=== PATIENT | female | born 1955 | race Caucasian/White ===

== ENCOUNTER 2017-02-05 11:34 | Inpatient (IN) | payer OTHER ==
[~2017-02-05] VITALS: Ht 180.3 cm; Wt 74.2 kg
[2017-02-05 11:52] VITALS: BP 130/87; PULSE 81; RESP 18; TEMP 98.5; O2SAT 96
[2017-02-05] MEDS ORDERED: ROSU5 PO (11:58)
[2017-02-05] MEDS ORDERED: URIB118C (11:58)
[2017-02-05] MEDS ORDERED: MIRA25TA PO (11:58)
[2017-02-05] MEDS ORDERED: DEXAMETHASONE SOD PHOS 4 MG/ML VIAL IV ONE (12:00)
[2017-02-05] MEDS ORDERED: PROPOFOL 200 MG/20 ML AMP IV ONE (12:00)
[2017-02-05] MEDS ORDERED: LIDOCAINE HCL 1% PF 5 ML AMPULE OTHER ONE (12:00)
[2017-02-05] MEDS ORDERED: ONDANSETRON HCL 4 MG/2 ML VIAL IV PUSH ONE ×2 (12:00→14:35)
[2017-02-05] MEDS ORDERED: MORPHINE SULFATE 4 MG/ML INJ IV ONE (12:00)
[2017-02-05] MEDS ORDERED: SODIUM CHLOR 0.9% 1000 ML INJ 1,000 ML IV SCH (12:00)
[2017-02-05] MEDS ORDERED: ePHEDrine/NS 25 MG/5 ML SYR IV ONE (12:00)
[2017-02-05 12:01] VITALS: RESP 18; O2SAT 96
[2017-02-05 12:26] LABS: AUTOMATED NEUTROPHIL # 3.8 TH/MM3 (1.8-7.7); BASOPHIL # 0.1 TH/MM3 (0-0.2); BASOPHIL % 0.9 % (0.0-2.0); EOSINOPHIL # 0.1 TH/MM3 (0-0.4); EOSINOPHIL % 2.1 % (0.0-4.0); HEMO FLAGS DIFF FINAL; LYMPH % 26.9 % (9.0-44.0); LYMPHOCYTE # 1.8 TH/MM3 (1.0-4.8); MEAN CELL VOLUME 95.9 FL (80.0-100.0); MEAN CORPUSCULAR HEMOGLOBIN 32.7 PG (27.0-34.0); MEAN CORPUSCULAR HGB CONC 34.1 % (32.0-36.0); MONO % 12.1 % (0.0-8.0); PLATELET COUNT 281 TH/MM3 (150-450); RED BLOOD COUNT 4.17 MIL/MM3 (4.00-5.30); RED CELL DISTRIBUTION WIDTH 12.3 % (11.6-17.2); WHITE BLOOD COUNT 6.6 TH/MM3 (4.0-11.0)
--- NOTE | 2017-02-05 12:31 | PD ---
HPI Chief Complaint: Injury Time Seen by Provider: 11:58 Travel History International Travel<30 days: No Contact w/Intl Traveler<30days: No Traveled to known affect area: No History of Present Illness HPI 61-year-old female complaining of pain swelling right thumb. Patient states that she got bitten by her dog 2 days ago. Patient states that she was seen by her personal physician and was put on clarithromycin. Patient states that he has increasing pain and swelling of the right thumb since then. Patient denies any fever chills. Patient states the pain is sharp pain localized to right thumb. Patient denies any pain radiation. She states the pain is worse with movement of the right thumb. On a scale of 1-10 the pain is a 10. Patient has history of hyperlipidemia. Patient has x-ray of the right thumb done at [place] this morning. PFS Past Medical History Anxiety: Yes Diabetes: No Tetanus Vaccination: > 5 Years Influenza Vaccination: No Menopausal: Yes Past Surgical History Other Surgery: Yes (BREAST AUGMENTATION) Social History Alcohol Use: No Tobacco Use: No Substance Use: No Allergies-Medications (Allergen,Severity, Reaction): Coded Allergies: penicillin G (Unverified Allergy, Severe, 02/05/17) Reported Meds & Prescriptions Reported Meds & Active Scripts Active Reported Myrbetriq (Mirabegron) 25 Mg Tab 25 Mg PO DAILY Uribel (Rkldbkqkfyc-Dposc-Hxvdoybvf Blue) 1 Cap Crestor (Rosuvastatin Calcium) 5 Mg Tab 5 Mg PO DAILY Review of Systems General / Constitutional: No: Fever Eyes: No: Visual changes HENT: No: Headaches Cardiovascular: No: Chest Pain or Discomfort Respiratory: No: Shortness of Breath Gastrointestinal: No: Abdominal Pain Genitourinary: No: Dysuria Musculoskeletal: Positive: Pain Skin: No Rash Neurologic: No: Weakness Psychiatric: No: Depression Endocrine: No: Polydipsia Hematologic/Lymphatic: No: Easy Bruising Physical Exam Narrative GENERAL: Well-nourished, well-developed patient. SKIN: Focused skin assessment warm/dry. HEAD: Normocephalic. EYES: No scleral icterus. No injection or drainage. NECK: Supple, trachea midline. No JVD or lymphadenopathy. CARDIOVASCULAR: Regular rate and rhythm without murmurs, gallops, or rubs. RESPIRATORY: Breath sounds equal bilaterally. No accessory muscle use. GASTROINTESTINAL: Abdomen soft, non-tender, nondistended. MUSCULOSKELETAL: No cyanosis, or edema. BACK: Nontender without obvious deformity. No CVA tenderness. Patient has redness swelling tenderness diffuse over the right thumb with a healing puncture wound on the ulnar aspect of the IP joint of the right thumb. Severe tenderness on passive flexion extension of the right thumb. Severe tenderness on palpation palmar aspect of the right thumb. Sensory function intact. Data Data Last Documented VS Vital Signs Date Time Temp Pulse Resp B/P (MAP) Pulse Ox O2 Delivery O2 Flow Rate FiO2 02/05/17 12:01 18 96 Room Air 02/05/17 11:58 81 02/05/17 11:52 98.5 130/87 (101) Orders Orders Electrocardiogram (02/05/17 11:58) Complete Blood Count With Diff (02/05/17 11:58) Basic Metabolic Panel (Bmp) (02/05/17 11:58) Prothrombin Time / Inr (Pt) (02/05/17 11:58) Act Partial Throm Time (Ptt) (02/05/17 11:58) Iv Access Insert/Monitor (02/05/17 11:58) Ecg Monitoring (02/05/17 11:58) Oximetry (02/05/17 11:58) Sodium Chlor 0.9% 1000 Ml Inj (Ns 1000 M (02/05/17 12:00) Electrocardiogram (02/05/17 ) Chest, Single Ap (02/05/17 12:00) Finger (Xxi9std) (02/05/17 12:21) Vancomycin Inj (Vancomycin Inj) (02/05/17 12:45) Morphine Inj (Morphine Inj) (02/05/17 12:45) Ondansetron Inj (Zofran Inj) (02/05/17 12:45) Admit Order (Ed Use Only) (02/05/17 12:47) Consult Hand Surgery (02/05/17 ) Diet Npo (02/05/17 Lunch) Consult Infectious Disease (02/05/17 ) Ciprofloxacin 400 Mg Premix (Cipro 400 M (02/05/17 13:00) Metronidazole 500 Mg Inj (Flagyl 500 Mg (02/05/17 13:00) Ketorolac Inj (Toradol Inj) (02/05/17 13:00) Ondansetron Inj (Zofran Inj) (02/05/17 13:00) Sodium Chlor 0.9% 1000 Ml Inj (Ns 1000 M (02/05/17 13:00) Admit To Inpatient (02/05/17 ) Labs Laboratory Tests Test 02/05/17 12:10 White Blood Count 6.6 TH/MM3 Red Blood Count 4.17 MIL/MM3 Hemoglobin 13.6 GM/DL Hematocrit 40.0 % Mean Corpuscular Volume 95.9 FL Mean Corpuscular Hemoglobin 32.7 PG Mean Corpuscular Hemoglobin Concent 34.1 % Red Cell Distribution Width 12.3 % Platelet Count 281 TH/MM3 Mean Platelet Volume 6.7 FL Neutrophils (%) (Auto) 58.0 % Lymphocytes (%) (Auto) 26.9 % Monocytes (%) (Auto) 12.1 % Eosinophils (%) (Auto) 2.1 % Basophils (%) (Auto) 0.9 % Neutrophils # (Auto) 3.8 TH/MM3 Lymphocytes # (Auto) 1.8 TH/MM3 Monocytes # (Auto) 0.8 TH/MM3 Eosinophils # (Auto) 0.1 TH/MM3 Basophils # (Auto) 0.1 TH/MM3 CBC Comment DIFF FINAL Differential Comment Prothrombin Time 10.6 SEC Prothromb Time International Ratio 1.0 RATIO Activated Partial Thromboplast Time 24.1 SEC Blood Urea Nitrogen 16 MG/DL Creatinine 0.75 MG/DL Random Glucose 104 MG/DL Calcium Level 8.5 MG/DL Sodium Level 139 MEQ/L Potassium Level 4.0 MEQ/L Chloride Level 109 MEQ/L Carbon Dioxide Level 23.3 MEQ/L Anion Gap 7 MEQ/L Estimat Glomerular Filtration Rate 78 ML/MIN [facility] Medical Decision Making Medical Screen Exam Complete: Yes Emergency Medical Condition: Yes Differential Diagnosis Differential diagnosis including cellulitis, Tenosynovitis Narrative Course 61-year-old female with redness swelling tenderness right thumb. Status post dog bite the right thumb. Normal saline solution 1 25 cc an hour. Diagnosis Primary Impression: Tenosynovitis of finger Admitting Information Admitting Physician Requests: Admit Noé Contreras MD Feb 05, 2017 12:31
[2017-02-05 12:36] LABS: APTT (PATIENT) 24.1 SEC (24.3-30.1); PROTHROMBIN TIME - PATIENT 10.6 SEC (9.8-11.6)
[2017-02-05 12:42] LABS: BICARBONATE 23.3 MEQ/L (21.0-32.0)
--- NOTE | 2017-02-05 12:42 | RADRPT ---
EXAM DATE/TIME: 02/05/2017 12:11 [place] COMPARISON: No previous studies available for comparison. INDICATIONS : Evaluate for communicable disease. Dog bite to right thumb. MEDICAL HISTORY : None. SURGICAL HISTORY : None. ENCOUNTER: Initial ACUITY: 4 - 6 days PAIN SCORE: 0/10 LOCATION: Bilateral chest FINDINGS: A single view of the chest demonstrates the lungs to be symmetrically aerated without evidence of mas s, infiltrate or effusion. The cardiomediastinal contours are unremarkable. Osseous structures are intact. CONCLUSION: No acute disease. Clyde Orozco MD on February 05, 2017 at 12:40 Board Certified Radiologist. This report was verified electronically.
[2017-02-05] MEDS: SODIUM CHLOR 0.9% 1000 ML INJ 1,000 ML IV SCH ×2 (13:00→22:24)
[2017-02-05] MEDS ORDERED: ONDANSETRON HCL 4 MG/2 ML VIAL IV PUSH PRN (13:00)
--- NOTE | 2017-02-05 13:12 | HHI.HP ---
[facility] Nancy Fam DO Admission Diagnosis Tenosynovitis right thumb Diagnoses: (1) Tenosynovitis of finger Diagnosis: Principal (2) Dog bite Diagnosis: Principal Chief Complaint: pain/swelling of the right thumb Travel History International Travel<30 Days: No Contact w/Intl Traveler <30 Da: No Traveled to Known Affected Are: No History of Present Illness patient is a 61 y/o female who presented to ER with pain and swelling of the right thumb. she says that was bitten by her dog two days ago when she was feeding her dog. she noticed some swelling and redness over the right thumb which gradually got worse. she was prescribed Clarithromycin by her PCP which she took with no significant improvement. she denies any fever,chills or night sweats. she had some nausea but with no emesis. Review of Systems Constitutional: DENIES: Fever, Weight loss, Chills, Night Sweats Eyes: DENIES: Blurred vision, Diplopia, Vision loss, Double Vision Ears, nose, mouth, throat: DENIES: Tinnitus, Vertigo, Throat pain, Epistaxis Respiratory: DENIES: Apneas, Cough, Snoring, Wheezing, Hemoptysis, Sputum production, Shortness of breath Cardiovascular: DENIES: Chest pain, Palpitations, Syncope, Dyspnea on Exertion , PND, Lower Extremity Edema, Orthopnea, Claudication Gastrointestinal: COMPLAINS OF: Nausea, DENIES: Abdominal pain, Black stools, Bloody stools, Constipation, Diarrhea, Vomiting, Difficulty Swallowing, Anorexia Genitourinary: DENIES: Urinary frequency, Urgency, Hematuria, Dysuria Musculoskeletal: COMPLAINS OF: Joint pain (right thumb), DENIES: Muscle aches, Stiffness, Joint Swelling Integumentary: DENIES: Rash Neurologic: DENIES: Abnormal gait, Headache, Localized weakness, Paresthesias, Seizures, Speech Problems, Tremor, Poor Balance Psychiatric: DENIES: Anxiety, Confusion, Mood changes, Depression, Hallucinations, Agitation, Suicidal Ideation, Homicidal Ideation, Delusions Past Family Social History Past Medical History dyslipidemia history of cystitis Past Surgical History breast augmentation ana Reported Medications Myrbetriq (Mirabegron) 25 Mg Tab 25 Mg PO DAILY Uribel (Rplcwqutlsl-Rjwsa-Eurpwhrxt Blue) 1 Cap Crestor (Rosuvastatin Calcium) 5 Mg Tab 5 Mg PO DAILY Allergies: Coded Allergies: penicillin G (Unverified Allergy, Severe, 02/05/17) Active Ordered Medications Current Medications Sodium Chloride 1,000 ml @ 125 mls/hr Q8H IV Last administered on 02/05/17t 12 :19; Start 02/05/17 at 12:00 Vancomycin HCl 1000 mg/Sodium Chloride 250 ml @ 250 mls/hr ONCE ONCE IV ; Start 02/05/17 at 12:45; Stop 02/05/17 at 13:44; Status UNV Morphine Sulfate (Morphine Inj) 2 mg ONCE ONCE IV PUSH ; Start 02/05/17 at 12: 45; Stop 02/05/17 at 12:46; Status UNV Ondansetron HCl (Zofran Inj) 4 mg ONCE ONCE IV PUSH ; Start 02/05/17 at 12:45; Stop 02/05/17 at 12:46; Status UNV Family History not relevant to this admission. Social History no smoking or drinking. Physical Exam Vital Signs Vital Signs Date Time Temp Pulse Resp B/P (MAP) Pulse Ox O2 Delivery O2 Flow Rate FiO2 02/05/17 12:01 18 96 Room Air 02/05/17 11:58 81 18 96 Room Air 02/05/17 11:52 98.5 81 18 130/87 (101) 96 Physical Exam GENERAL: This is a well-nourished, well-developed patient, in no apparent distress. SKIN: No rashes, ecchymoses or lesions. Cool and dry. HEAD: Atraumatic. Normocephalic. No temporal or scalp tenderness. EYES: Pupils equal round and reactive. Extraocular motions intact. No scleral icterus. No injection or drainage. ENT: Nose without bleeding, purulent drainage or septal hematoma. Throat without erythema, tonsillar hypertrophy or exudate. Uvula midline. Airway patent. NECK: Trachea midline. No JVD or lymphadenopathy. Supple, nontender, no meningeal signs. CARDIOVASCULAR: Regular rate and rhythm without murmurs, gallops, or rubs. RESPIRATORY: Clear to auscultation. Breath sounds equal bilaterally. No wheezes , rales, or rhonchi. GASTROINTESTINAL: Abdomen soft, non-tender, nondistended. No hepato-splenomegaly , or palpable masses. No guarding. MUSCULOSKELETAL:right thumb is swollen with some erythema and decrease in ROM NEUROLOGICAL: Awake and alert. Cranial nerves II through XII intact. Motor and sensory grossly within normal limits. Five out of 5 muscle strength in all muscle groups. Normal speech. Laboratory Laboratory Tests Test 02/05/17 12:10 White Blood Count 6.6 Red Blood Count 4.17 Hemoglobin 13.6 Hematocrit 40.0 Mean Corpuscular Volume 95.9 Mean Corpuscular Hemoglobin 32.7 Mean Corpuscular Hemoglobin Concent 34.1 Red Cell Distribution Width 12.3 Platelet Count 281 Mean Platelet Volume 6.7 Neutrophils (%) (Auto) 58.0 Lymphocytes (%) (Auto) 26.9 Monocytes (%) (Auto) 12.1 Eosinophils (%) (Auto) 2.1 Basophils (%) (Auto) 0.9 Neutrophils # (Auto) 3.8 Lymphocytes # (Auto) 1.8 Monocytes # (Auto) 0.8 Eosinophils # (Auto) 0.1 Basophils # (Auto) 0.1 CBC Comment DIFF FINAL Differential Comment Prothrombin Time 10.6 Prothromb Time International Ratio 1.0 Activated Partial Thromboplast Time 24.1 Blood Urea Nitrogen 16 Creatinine 0.75 Random Glucose 104 Calcium Level 8.5 Sodium Level 139 Potassium Level 4.0 Chloride Level 109 Carbon Dioxide Level 23.3 Anion Gap 7 Estimat Glomerular Filtration Rate 78 Result Diagram: 02/05/17 1210 02/05/17 1210 Caprini VTE Risk Assessment Caprini VTE Risk Assessment: Mod/High Risk (score >= 2) Caprini Risk Assessment Model Point Value = 1 Point Value = 2 Point Value = 3 Point Value = 5 Age 41-60 Minor surgery BMI > 25 kg/m2 Swollen legs Varicose veins or History of unexplained or recurrent spontaneous Oral contraceptives or hormone replacement Sepsis (< 1 month) Serious lung disease, including pneumonia (< 1 month) Abnormal pulmonary function Acute myocardial infarction Congestive heart failure (< 1 month) History of inflammatory bowel disease Medical patient at bed rest Age 61-74 Arthroscopic surgery Major open surgery (> 45 min) Laparoscopic surgery (> 45 min) Malignancy Confined to bed (> 72 hours) Immobilizing plaster cast Central venous access Age >= 75 History of VTE Family history of VTE Factor V Leiden Prothrombin [id number] Lupus anticoagulant Anticardiolipin antibodies Elevated serum homocysteine Heparin-induced thrombocytopenia Other congenital or acquired thrombophilia Stroke (< 1 month) Elective arthroplasty Hip, pelvis, or leg fracture Acute spinal cord injury (< 1 month) Prophylaxis Regimen Total Risk Factor Score Risk Level Prophylaxis Regimen 0-1 Low Early ambulation 2 Moderate Order ONE of the following: *Sequential Compression Device (SCD) *Heparin 5000 units SQ BID 3-4 Higher Order ONE of the following medications: *Heparin 5000 units SQ TID *Enoxaparin/Lovenox 40 mg SQ daily (WT < 150 kg, CrCl > 30 mL/min) *Enoxaparin/Lovenox 30 mg SQ daily (WT < 150 kg, CrCl > 10-29 mL/min) *Enoxaparin/Lovenox 30 mg SQ BID (WT < 150 kg, CrCl > 30 mL/min) AND/OR *Sequential Compression Device (SCD) 5 or more Highest Order ONE of the following medications: *Heparin 5000 units SQ TID (Preferred with Epidurals) *Enoxaparin/Lovenox 40 mg SQ daily (WT < 150 kg, CrCl > 30 mL/min) *Enoxaparin/Lovenox 30 mg SQ daily (WT < 150 kg, CrCl > 10-29 mL/min) *Enoxaparin/Lovenox 30 mg SQ BID (WT < 150 kg, CrCl > 30 mL/min) AND *Sequential Compression Device (SCD) Assessment and Plan Assessment and Plan A/P - right thumb infection/ dog bite keep NPO for now- pending the hand surgery evaluation- start on IV antibiotics - will consult ID continue pain control. -dyslipidemia; resume home meds upon discharge. -DVT prophylaxis- SCD's pending the hand surgery evaluation. Discussed Condition With ER physician and the patient. Physician Certification 2 Midnight Certification Type: Admission for Inpatient Services Order for Inpatient Services The services are ordered in accordance with Medicare regulations or non- Medicare payer requirements, as applicable. In the case of services not specified as inpatient-only, they are appropriately provided as inpatient services in accordance with the 2-midnight benchmark. Estimated LOS (days): 2 days is the estimated time the patient will need to remain in the hospital, assuming treatment plan goals are met and no additional complications. Post-Hospital Plan: Home Physician Certification 2 Midnight Certification Type: Admission for Inpatient Services Order for Inpatient Services The services are ordered in accordance with Medicare regulations or non- Medicare payer requirements, as applicable. In the case of services not specified as inpatient-only, they are appropriately provided as inpatient services in accordance with the 2-midnight benchmark. Estimated LOS (days): 2 days is the estimated time the patient will need to remain in the hospital, assuming treatment plan goals are met and no additional complications. Post-Hospital Plan: Home Manjit Aranda MD Feb 05, 2017 13:12
[2017-02-05 13:29] VITALS: BP 135/88; PULSE 80; RESP 18; O2SAT 97
[2017-02-05 13:50] VITALS: BP 133/88; PULSE 74; RESP 18; TEMP 96.9; O2SAT 96
[2017-02-05] MEDS ORDERED: KETOROLAC TROMETHAMINE 30 MG/ML (IVP) VIAL IV PUSH PRN (14:00)
[2017-02-05] MEDS ORDERED: VANCOMYCIN INJ 1,000 MG in SODIUM CHLOR 0.9% 250 ML INJ 250 ML IV ONE (14:30)
[2017-02-05] MEDS ORDERED: MORPHINE SULFATE 4 MG/ML INJ IV PUSH ONE (14:35)
[2017-02-05] MEDS: CIPROFLOXACIN 400 MG PREMIX 200 ML IV SCH (15:28)
[2017-02-05] MEDS: metroNIDAZOLE 500 MG INJ 100 ML IV SCH ×2 (15:28→20:50)
[2017-02-05 19:50] VITALS: BP 136/97; PULSE 72; RESP 16; TEMP 97.4; O2SAT 98
[2017-02-05] MEDS ORDERED: LIDOCAINE HCL 2% 50 ML VIAL ONE (20:09)
[2017-02-05] MEDS ORDERED: BUPIVACAINE HCL PF 0.25% 30 ML VIAL ONE (20:11)
[2017-02-05] MEDS ORDERED: METOPROLOL TARTRATE 25 MG TAB PO PRN (20:15)
[2017-02-05] MEDS ORDERED: SODIUM CHLORID 0.9% 500 ML IV PRN (20:15)
[2017-02-05] MEDS ORDERED: POVIDONE IODINE 5% (ANTISEPSIS KIT) 4 APPLICATIONS EACH NARE PRN (20:15)
[2017-02-05] MEDS ORDERED: LACTATED RINGER'S 1000 ML IV PRN (20:15)
[2017-02-05] MEDS ORDERED: INSULIN HUMAN REGULAR 1,000 UNITS/10 ML VIAL SQ PRN (20:15)
[2017-02-05] MEDS ORDERED: CHLORHEXIDINE GLUCONATE 2 % 1 PACK (2 CLOTHS) TOPICAL PRN (20:15)
[2017-02-05] MEDS ORDERED: NEOMYCIN/POLYMYXIN 1 ML G.U. IRRIGANT IRRIGATION ONE (20:52)
--- NOTE | 2017-02-05 21:47 | PD.OP ---
Operative Report Preoperative Diagnosis: (1) Dog bite of right thumb with infection Postoperative Diagnosis: (1) infectious flexor tenosynovitis right thumb (2) Dog bite of right thumb with infection Procedure: exploration, arthrotomy Interphalangeal joint right thumb drainage and wash flexor tendon sheath right thumb Anesthesia: general Surgeon: Mando Mathew Telephone Station Repairer(s): deepak Operation and Findings: bite wounds over the lateral aspect of the IP joint of the thumb purulence within the flexor tendon sheath right thumb IP joint no purulence Mando Mathew MD Feb 05, 2017 21:47
[2017-02-05] MEDS ORDERED: *morphine SULFATE 8 MG/ML PERIprocedure ONLY ONE (22:20)
[2017-02-05] MEDS ORDERED: DO NOT ADM ANY ANTICOAGULANT DRUGS PRN (22:45)
[2017-02-05 23:00] VITALS: BP 142/95; PULSE 79; RESP 17; TEMP 96.8; O2SAT 99
--- NOTE | 2017-02-05 23:26 | MB ---
cc: GERALDO MCDONNELL DATE OF CONSULTATION 02/05/17 REASON FOR CONSULTATION Dog bite with infection right thumb. HISTORY OF PRESENT ILLNESS The patient is a 61-year-old right-hand dominant female who presented to the ED with complaints of dog bite to right thumb two days ago. The patient was feeding her dog and was bitten by her own dog. The patient was initially seen by primary care. She was put on oral antibiotics and she had worsening of symptoms and presented to the ED. Hand surgery was consulted for possible flexor tendon sheath involvement. The patient complains of pain and swelling involving the right thumb. She also complains of associated redness. Denies any drainage. She also complains of mild decreased sensation of the pulp region. She also complains of painful range of motion of the thumb. Denies any fever. PAST MEDICAL/SURGICAL HISTORY As noted. PHYSICAL EXAMINATION On examination, the patient is alert, oriented x3. Examination of right thumb reveals two bite raman on the lateral aspect of the IP joint of the thumb. There is evidence of swelling and erythema along the volar aspect of the IP joint of the thumb and along the flexor tendon sheath up to the proximal phalanx region. There is also evidence of swelling on the dorsal aspect of the IP joint of the thumb with some fluctuation. Tenderness noted over the volar aspect of the IP joint of the thumb and along the flexor tendon sheath. Tenderness also noted over the dorsal aspect of the IP joint of the thumb. Range of motion of the thumb was limited and painful and associated with pain. She had decreased sensation over the pulp region. She had intact capillary refill. No evidence of compartment syndrome of the pulp noted clinically. No involvement of the volar aspect of the wrist or the forearm noted. IMAGING STUDIES X-rays done at an outside facility were reviewed, shows no evidence of fracture or foreign body. LABORATORY DATA Lab work was reviewed. She has a white count of 6.6 with neutrophil shift of 58%. ASSESSMENT A 61-year-old female with dog bite to the right thumb with flexor tendon sheath involvement and questionable involvement of IP joint of the thumb. PLAN We will keep the patient n.p.o., take her emergently for exploration, wash flexor tendon sheath and possible arthrotomy IP joint of the right thumb. We will continue with IV antibiotics. MD ALEX Lee /9:54 PM /11:16 PM [id number]
[2017-02-06] VITALS (7 sets, daily range): BP systolic 105–137; BP diastolic 67–78; PULSE 67–75; RESP 16–17; TEMP 96.1–98.6; O2SAT 94–97
[2017-02-06] MEDS: CIPROFLOXACIN 400 MG PREMIX 200 ML IV SCH ×2 (00:37→13:46)
[2017-02-06] MEDS ORDERED: ACETAMINOPHEN/HYDROcodone 325 MG/5 MG TAB PO ONE (02:30)
[2017-02-06] MEDS: metroNIDAZOLE 500 MG INJ 100 ML IV SCH ×3 (05:55→21:17)
--- NOTE | 2017-02-06 09:20 | HHI.PR ---
Subjective Remarks in no acute distress. pain to the right hand is moderate in intensity. no fever. d/w the RN and no acute issues over night. Objective Vitals Vital Signs Date Time Temp Pulse Resp B/P (MAP) Pulse Ox O2 Delivery O2 Flow Rate FiO2 02/06/17 07:57 97.2 69 16 105/73 (84) 94 02/06/17 04:00 97.9 75 16 109/67 (81) 97 02/05/17 23:00 96.8 79 17 142/95 (111) 99 02/05/17 22:30 69 16 129/77 (94) 99 Room Air 02/05/17 22:15 74 17 135/81 (99) 99 Room Air 02/05/17 22:09 75 12 130/79 (96) 99 Room Air 02/05/17 21:53 97.2 77 12 105/62 (76) 90 Nasal Cannula 4 02/05/17 19:50 97.4 72 16 136/97 (110) 98 02/05/17 13:50 96.9 74 18 133/88 (103) 96 02/05/17 13:29 80 18 135/88 (104) 97 Room Air 02/05/17 12:01 18 96 Room Air 02/05/17 11:58 81 18 96 Room Air 02/05/17 11:52 98.5 81 18 130/87 (101) 96 I/O 02/05/17 02/05/17 02/05/17 02/06/17 02/06/17 02/06/17 07:00 15:00 23:00 07:00 15:00 23:00 Intake Total 0 ml 1850 ml 560 ml Output Total 5 ml Balance 0 ml 1845 ml 560 ml Intake Oral 360 ml IV Total 0 ml 650 ml 200 ml Other 1200 ml Output Estimated Blood Loss 5 ml # Voids 5 Result Diagram: 02/05/17 1210 02/05/17 1210 Imaging Last Impressions Chest X-Ray 02/05/17 1200 Signed Impressions: Service Date/Time: January 12:11 - CONCLUSION: No acute disease. Clyde Orozco MD Objective Remarks GENERAL: This is a well-nourished, well-developed patient, in no apparent distress. CARDIOVASCULAR: Regular rate and regular rhythm without murmurs, gallops, or rubs. RESPIRATORY: Clear to auscultation. Breath sounds equal bilaterally. No wheezes , rales, or rhonchi. GASTROINTESTINAL: Abdomen soft, non-tender, nondistended. Normal, active bowel sounds MUSCULOSKELETAL: right hand covered with clean dressing. NEURO: Alert & Oriented x4 to person, place, time, situation. Moves all ext x4 Procedures exploration, arthrotomy Interphalangeal joint right thumb drainage and wash flexor tendon sheath right thumb Medications and IVs Current Medications Sodium Chloride 1,000 ml @ 125 mls/hr Q8H IV Last administered on 02/05/17 12 :19; Start 02/05/17 at 12:00; Stop 02/05/17 at 14:27; Status DC Vancomycin HCl 1000 mg/Sodium Chloride 250 ml @ 250 mls/hr ONCE ONCE IV Last administered on 02/05/17 15:28; Start 02/05/17 at 14:30; Stop 02/05/17 at 15:29 ; Status DC Morphine Sulfate (Morphine Inj) 2 mg ONCE ONCE IV PUSH Last administered on 15:29; Start 02/05/17 at 14:35; Stop 02/05/17 at 14:36; Status DC Ondansetron HCl (Zofran Inj) 4 mg ONCE ONCE IV PUSH ; Start 02/05/17 at 14:35; Stop 02/05/17 at 14:36; Status DC Ciprofloxacin/ Dextrose 200 ml @ 200 mls/hr Q12H IV Last administered on 00:37; Start 02/05/17 at 14:00 Metronidazole 100 ml @ 100 mls/hr Q8H IV Last administered on 02/06/17 05:55 ; Start 02/05/17 at 15:00 Ketorolac Tromethamine (Toradol Inj) 15 mg Q6HR PRN IV PUSH PAIN /FEVER Last administered on 02/06/17 00:37; Start 02/05/17 at 14:00; Stop 02/10/17 at 13:59 Ondansetron HCl (Zofran Inj) 4 mg Q8HR PRN IV PUSH NAUSEA; Start 02/05/17 at 13 :00 Sodium Chloride 1,000 ml @ 100 mls/hr Q10H IV Last administered on 02/05/17 22:24; Start 02/05/17 at 13:00 Lidocaine HCl (Xylocaine 2% Inj) 50 ml STK-MED ONCE .ROUTE Last administered on 02/05/17 20:52; Start 02/05/17 at 20:09; Stop 02/05/17 at 20:10; Status DC Bupivacaine HCl (Marcaine Pf 0.25% Inj) 30 ml STK-MED ONCE .ROUTE Last administered on 02/05/17 20:52; Start 02/05/17 at 20:11; Stop 02/05/17 at 20:12 ; Status DC Lactated Ringer's 1,000 ml @ 30 mls/hr Q24H PRN IV SEE LABEL COMMENTS; Start at 20:15; Stop 02/08/17 at 20:14 Sodium Chloride 500 ml @ 30 mls/hr [id number] PRN IV SEE LABEL COMMENTS; Start at 20:15; Stop 02/08/17 at 20:14 Metoprolol Tartrate (Lopressor) 25 mg [employer]LE[employer]GER PRN PO SEE LABEL COMMENTS; Start 02/05/17 at 20:15; Stop 02/08/17 at 20:14 Povidone Iodine (Betadine 5% Antisepsis Kit) 1 applic [employer] SERV[employer]GER PRN EACH NARE SEE LABEL COMMENTS; Start 02/05/17 at 20:15; Stop 02/08/17 at 20:14 Chlorhexidine Gluconate (Chlorhexidine 2% Cloth) 3 pack [employer] SERV[employer]GER PRN TOPICAL SEE LABEL COMMENTS; Start 02/05/17 at 20:15; Stop 02/08/17 at 20:14 Insulin Human Regular (NovoLIN R INJ) See Protocol Table ... [employer] SERVICE MA[employer]GER PRN SQ SEE PROTOCOL TABLE; Start 02/05/17 at 20:15; Stop 02/08/17 at 20:14 Neomycin/Polymyxin (Neosporin G.u. Irr) 2 ml ONCE ONCE IRRIGATION Last administered on 02/05/17 21:37; Start 02/05/17 at 20:52; Stop 02/05/17 at 21:37 ; Status DC Morphine Sulfate (*morphine INJ PERIprocedure ONLY) 8 mg STK-MED ONCE .ROUTE Last administered on 02/05/17 22:20; Start 02/05/17 at 22:20; Stop 02/05/17 at 22:21; Status DC Miscellaneous Information ALL NURSING DEPARTME... UNSCH PRN .XX SEE LABEL COMMENTS; Start 02/05/17 at 22:45; Stop 02/06/17 at 22:44 Acetaminophen/ Hydrocodone Bitart ([place] 5-325 Mg) 1 tab ONCE ONCE PO Last administered on 02/06/17t 05:21; Start 02/06/17 at 02:30; Stop 02/06/17 at 02:31 ; Status DC A/P Assessment and Plan A/P - right thumb infection/ dog bite s/p exploration, arthrotomy Interphalangeal joint right thumb/ drainage and wash flexor tendon sheath right thumb continue with IV antibiotics- follow the cultures- hand surgery following- ID consult pending- continue pain control. -dyslipidemia; resume home meds Manjit Aranda MD Feb 06, 2017 09:20
[2017-02-06] MEDS ORDERED: ACETAMINOPHEN/HYDROcodone 325 MG/5 MG TAB PO PRN (09:30)
--- NOTE | 2017-02-06 10:11 | EKG ---
Date Performed: 02/05/2017 Time Performed: 13:02:17 PTAGE: 61 years EKG: Sinus rhythm LOW QRS VOLTAGE IN PRECORDIAL LEADS PATTERN CONSISTENT WITH PULMONARY DISEASE LEFT ANTERIOR FASCICUL AR BLOCK ABNORMAL ECG PREVIOUS TRACING : 07/12/2003 15.47 Compared to prior tracing no significant change DOCTOR: Thomas Parra Interpretating Date/Time 02/06/2017 10:10:17
--- NOTE | 2017-02-06 10:13 | MP ---
cc: MANDO MCDONNELL MD DATE OF SURGERY 02/05/2017 PREOPERATIVE DIAGNOSIS Dog bite right thumb with infection. POSTOPERATIVE DIAGNOSIS Infectious flexor tenosynovitis right thumb, dog bite right thumb with infection. PROCEDURE Exploration, arthrotomy interphalangeal joint right thumb, drainage and wash flexor tendon sheath right thumb. SURGEON Dr. Mcdonnell ANESTHESIA General ESTIMATED BLOOD LOSS Minimal TOURNIQUET TIME 34 minutes at 250 mmHg. SPECIMENS Three swabs were sent, one from the IP joint of the thumb. The second one from the flexor tendon sheath and the A2 pedro region and flexor tendon sheath from the A1 pedro region. CONDITION The patient was sent to the Recovery Room in stable condition. INDICATIONS The patient is a 61-year-old female who presented to the ED with complaints of dog bite to the right thumb two days ago. She was bitten by her own dog. She was feeding her dog. The patient noted some swelling and redness. She was put on clarithromycin initially when she presented to the ED, but had worsening pain involving the right thumb associated with swelling. On examination, she had two bite raman over the lateral aspect of the IP joint of the thumb. There was evidence of swelling and redness along the IP joint region on the volar aspect and along the flexor tendon sheath. Swelling of the IP joint on the dorsal aspect of the thumb was also noted. She had exquisite tenderness along the flexor tendon sheath and the volar aspect of the IP joint of the thumb. Range of motion of the thumb was associated with pain. X-rays done at an outside facility were negative. She was consented for exploration, wash flexor tendon sheath, possible arthrotomy interphalangeal joint right thumb. The patient was explained risk and benefits of the procedure. PROCEDURE The patient was brought to the operating room. Under general anesthesia, the right upper extremity was thoroughly prepped and draped. Incision site was marked in a curvilinear fashion incorporating the bite keegan on the dorsal aspect of the IP joint of the thumb measuring about 2 cm. Another zigzag incision site was marked along the IP joint of the thumb incorporating the pulp and the volar aspect of the proximal phalanx region. Another transverse incision site was marked at the proximal aspect of the A1 pedro region of the thumb. After limb elevation, the tourniquet was inflated to 250 mmHg. Attention was initially directed to the thumb IP joint. An incision was made on the radial aspect of the IP joint of the thumb. Soft tissue dissection was carried out. Soft tissue was cleared between the extensor tendon and the collateral ligament. The joint was exposed. There was no evidence of purulent material noted within the joint. The joint fluid was normal in appearance. Cultures were obtained. Thorough wash was given. Attention was then directed to the volar aspect of the IP joint of the thumb where a zigzag incision was made over the region. Skin flap was elevated. The neurovascular bundle was protected out of harm's way. The flexor tendon sheath was exposed and the A2 pedro was released in a proximal to distal direction. There as evidence of purulent material within the region involving the flexor tendon sheath. Swab was obtained for culture and sensitivity. The pulp appeared to be not involved. An incision was made in a transverse fashion of the proximal aspect of the A1 pedro. There was evidence of purulent material within the region. The A1 pedro was released in a proximal to distal direction. The flexor tendon sheath was exposed. There was evidence of purulent material within the region. Swabs were obtained from this region and sent for culture and sensitivity. A thorough wash was given using a vessel dilator using normal saline mixed with irrigant in a proximal to distal fashion until the effluent at the distal aspect of the wound was clear. About a half a liter of solution was used. A wash was given in the pulp and the IP joint region of the thumb. Packing of the wounds were carried out with one-fourth inch Iodoform packing material. The tourniquet was deflated. Total tourniquet time was 34 minutes. She had good distal circulation on release of tourniquet. Bleeding points were cauterized with bipolar cautery. The skin flaps were then loosely approximated using 5-0 nylon in a horizontal mattress fashion. The dorsal aspect of the IP joint was packed with Iodoform on loosely approximated using 5-0 nylon in a horizontal mattress fashion. 5 cc of local anesthesia was given across the incision site. A bulky hand dressing was applied which was held in place by Sof-Rol and bias hand wrap. The patient had good distal circulation at the end of the procedure. She was recovered and sent to the Recovery Room in stable condition. Mando Mcdonnell MD SE/ANNE /9:48 PM /9:50 AM [id number]
[2017-02-06] MEDS: ACETAMINOPHEN/HYDROcodone 325 MG/5 MG TAB PO PRN ×2 (10:24→15:13)
[2017-02-06] MEDS: SODIUM CHLOR 0.9% 1000 ML INJ 1,000 ML IV SCH ×2 (10:27→19:00)
--- NOTE | 2017-02-06 16:19 | HHI.PR ---
Subjective Remarks complains of mild pain denies any tingling or numbness complaint with elevation no fever Objective Vital Signs Date Time Temp Pulse Resp B/P (MAP) Pulse Ox O2 Delivery O2 Flow Rate FiO2 02/06/17 11:42 96.1 67 16 114/73 (87) 94 02/06/17 10:55 94 02/06/17 07:57 97.2 69 16 105/73 (84) 94 02/06/17 04:00 97.9 75 16 109/67 (81) 97 02/05/17 23:00 96.8 79 17 142/95 (111) 99 02/05/17 22:30 69 16 129/77 (94) 99 Room Air 02/05/17 22:15 74 17 135/81 (99) 99 Room Air 02/05/17 22:09 75 12 130/79 (96) 99 Room Air 02/05/17 21:53 97.2 77 12 105/62 (76) 90 Nasal Cannula 4 02/05/17 19:50 97.4 72 16 136/97 (110) 98 I/O 02/05/17 02/05/17 02/05/17 02/06/17 02/06/17 02/06/17 07:00 15:00 23:00 07:00 15:00 23:00 Intake Total 0 ml 1850 ml 560 ml Output Total 5 ml Balance 0 ml 1845 ml 560 ml Intake Oral 360 ml IV Total 0 ml 650 ml 200 ml Other 1200 ml Output Estimated Blood Loss 5 ml # Voids 5 right thumb/hand: intact dressing, packing in place decreased swelling intact sensation over the pulp limited range of motion of the thumb gram stain: rare wbc's flexor tendon sheath, none in IP joint Result Diagram: 02/05/17 1210 02/05/17 1210 Assessment and Plan Assessment and Plan 61 year of female s/p drainage flexor tendon sheath and arthrotomy right thumb POD 1 Plan: packing from IP joint removed flexor tendon sheath packing pulled out a cm new dressing applied keep the part elevated range of motion exercises antibiotics based on ID recommendation hand surgery will follow Mando Mathew MD Feb 06, 2017 16:19
--- NOTE | 2017-02-06 16:37 | PD.ID.CON ---
History of Present Illness Service ID Consult Requested By Reason for Consult Evaluation and mment of Infectious Tenosynovitis after dog bite. Primary Care Physician Nancy Fam DO Diagnoses: History of Present Illness is a 61 y/o CF with PMHx significant for Interstitial cystitis for which she has been on multiple antibiotics in past for recurrent UTIs. She also has a bladder stimulator in place but it is not being used actively and is turned off. With this background patient reports she was trying to feed her sick dog some medications when her pet dog accidentally bit her thumb. Her dog is 15.5 yrs old and does not get dental cleaning per her self report. She noticed some swelling and redness and her PCP prescribed her Clarithro// Azithromycin she is not sure. She noticed gradual worsening and presented to the ED. She denies any fever,chills or night sweats. She had some nausea but with no emesis and attributes it to the Tuna sandwich she ate. ID consulted for evaluation and Mment of Infected tenosynovitis. Review of Systems Constitutional: DENIES: Diaphoretic episodes, Fatigue, Fever, Weight gain, Weight loss, Chills, Dizziness, Change in appetite, Night Sweats Endocrine: DENIES: Abnorml menstrual pattern, Heat/cold intolerance, Polydipsia , Polyuria, Polyphagia Eyes: DENIES: Blurred vision, Diplopia, Eye inflammation, Eye pain, Vision loss , Photosensitivity, Double Vision Ears, nose, mouth, throat: DENIES: Tinnitus, Hearing loss, Vertigo, Nasal discharge, Oral lesions, Throat pain, Hoarseness, Ear Pain, Running Nose, Epistaxis, Sinus Pain, Toothache, Odynophagia Respiratory: DENIES: Apneas, Cough, Snoring, Wheezing, Hemoptysis, Sputum production, Shortness of breath Cardiovascular: DENIES: Chest pain, Palpitations, Syncope, Dyspnea on Exertion , PND, Lower Extremity Edema, Orthopnea, Claudication Gastrointestinal: DENIES: Abdominal pain, Black stools, Bloody stools, Constipation, Diarrhea, Nausea, Vomiting, Difficulty Swallowing, Anorexia Genitourinary: DENIES: Abnormal vaginal bleeding, Dysmenorrhea, Dyspareunia, Sexual dysfunction, Urinary frequency, Urinary incontinence, Urgency, Hematuria , Dysuria, Nocturia, Vaginal discharge Musculoskeletal: COMPLAINS OF: Joint pain, Stiffness, Joint Swelling, DENIES: Muscle aches, Back pain, Neck pain Integumentary: DENIES: Abnormal pigmentation, Pruritus, Rash, Nail changes, Breast masses, Breast skin changes, Nipple discharge Hematologic/lymphatic: DENIES: Bruising, Lymphadenopathy Immunologic/allergic: DENIES: Eczema, Urticaria Neurologic: DENIES: Abnormal gait, Headache, Localized weakness, Paresthesias, Seizures, Speech Problems, Tremor, Poor Balance Psychiatric: DENIES: Anxiety, Confusion, Mood changes, Depression, Hallucinations, Agitation, Suicidal Ideation, Homicidal Ideation, Delusions Except as stated in HPI: all other systems reviewed are Neg Past Family Social History Allergies: Coded Allergies: penicillin G (Unverified Allergy, Severe, 02/05/17) Past Medical History dyslipidemia history of cystitis Past Surgical History breast augmentation jerald-sangeethack Reported Medications Reported Meds & Active Scripts Active Reported Myrbetriq (Mirabegron) 25 Mg Tab 25 Mg PO DAILY Uribel (Sdjoildhcyk-Ihcqo-Ngnbqlckl Blue) 1 Cap Crestor (Rosuvastatin Calcium) 5 Mg Tab 5 Mg PO DAILY Active Ordered Medications Current Medications Medications (Trade) Dose Ordered Sig/Shelby Route Start Time Stop Time Status Last Admin Ciprofloxacin/ Dextrose 200 ml @ 200 mls/hr Q12H IV 02/05/17 14:00 02/06/17 13:46 Metronidazole 100 ml @ 100 mls/hr Q8H IV 02/05/17 15:00 02/06/17 21:17 (Zofran Inj) 4 mg Q8HR PRN IV PUSH 02/05/17 13:00 02/06/17 15:00 Sodium Chloride 1,000 ml @ 100 mls/hr Q10H IV 02/05/17 13:00 02/06/17 10:27 Lactated Ringer's 1,000 ml @ 30 mls/hr Q24H PRN IV 02/05/17 20:15 02/08/17 20:14 Sodium Chloride 500 ml @ 30 mls/hr [id number] PRN IV 02/05/17 20:15 02/08/17 20:14 (Lopressor) 25 mg HOSPITAL ORDERLY PRN PO 02/05/17 20:15 02/08/17 20:14 (Betadine 5% Antisepsis Kit) 1 applic HOSPITAL ORDERLY PRN EACH NARE 02/05/17 20:15 02/08/17 20:14 (Chlorhexidine 2% Cloth) 3 pack HOSPITAL ORDERLY PRN TOPICAL 02/05/17 20:15 02/08/17 20:14 (NovoLIN R INJ) See Protocol Table ... HOSPITAL ORDERLY PRN SQ 02/05/17 20:15 02/08/17 20:14 ([place] 5-325 Mg) 1 tab Q4H PRN PO 02/06/17 09:30 ([place] 5-325 Mg) 2 tab Q4H PRN PO 02/06/17 09:30 02/06/17 15:13 (Ambien) 5 mg HS PRN PO 02/06/17 09:30 02/06/17 21:17 (Detrol La) 4 mg DAILY PO 02/07/17 09:00 (Lipitor) 10 mg DAILY PO 02/07/17 09:00 Family History reviewed. Social History No alcohol, no smoking, no drugs. Physical Exam Vital Signs Vital Signs Date Time Temp Pulse Resp B/P (MAP) Pulse Ox O2 Delivery O2 Flow Rate FiO2 02/06/17 11:42 96.1 67 16 114/73 (87) 94 02/06/17 10:55 94 02/06/17 07:57 97.2 69 16 105/73 (84) 94 02/06/17 04:00 97.9 75 16 109/67 (81) 97 02/05/17 23:00 96.8 79 17 142/95 (111) 99 02/05/17 22:30 69 16 129/77 (94) 99 Room Air 02/05/17 22:15 74 17 135/81 (99) 99 Room Air 02/05/17 22:09 75 12 130/79 (96) 99 Room Air 02/05/17 21:53 97.2 77 12 105/62 (76) 90 Nasal Cannula 4 02/05/17 19:50 97.4 72 16 136/97 (110) 98 Physical Exam GENERAL: This is a well-nourished, well-developed patient, in no apparent distress. SKIN: No rashes, ecchymoses or lesions. Cool and dry. HEAD: Atraumatic. Normocephalic. No temporal or scalp tenderness. EYES: Pupils equal round and reactive. Extraocular motions intact. No scleral icterus. No injection or drainage. ENT: Nose without bleeding, purulent drainage or septal hematoma. Throat without erythema, tonsillar hypertrophy or exudate. Uvula midline. Airway patent. NECK: Trachea midline. No JVD or lymphadenopathy. Supple, nontender, no meningeal signs. CARDIOVASCULAR: Regular rate and rhythm without murmurs, gallops, or rubs. RESPIRATORY: Clear to auscultation. Breath sounds equal bilaterally. No wheezes , rales, or rhonchi. GASTROINTESTINAL: Abdomen soft, non-tender, nondistended. No hepato-splenomegaly , or palpable masses. No guarding. MUSCULOSKELETAL: Right hand in post op dressing. showed me pictures. NEUROLOGICAL: Awake and alert. Cranial nerves II through XII intact. Motor and sensory grossly within normal limits. Five out of 5 muscle strength in all muscle groups. Normal speech. Psych cooperative IV line sites with no e.o infection Laboratory Date/Time Source Procedure Growth Status 02/05/17 21:13 Wound Finger Fungal Smear - Final NO FUNGAL ELEMENTS SEEN. Resulted 02/05/17 21:13 Wound Finger Fungal Culture Pending Resulted Result Diagram: 02/05/17 1210 02/05/17 1210 Imaging Last Impressions Chest X-Ray 02/05/17 1200 Signed Impressions: Service Date/Time: January 12:11 - CONCLUSION: No acute disease. Clyde Orozco MD Assessment and Plan Assessment and Plan Infective tenosynovitis Dog bite Interstitial cystitis Prior antibiotic exposure. Bladder stimulator in place. Penicillin allergy recs Continue Cipro Continue flagyl Follow cultures Follow clinically D.w hand surgery treat as tenosynovitis, no bone involved. to cover for me this weekend. Cheyenne Limon MD Feb 06, 2017 16:37
[2017-02-06] MEDS: ZOLPIDEM TARTRATE 5 MG TAB PO PRN (21:17)
[2017-02-07] VITALS: BP 107/70; PULSE 71; RESP 16; TEMP 97.8; O2SAT 96
[2017-02-07] MEDS: CIPROFLOXACIN 400 MG PREMIX 200 ML IV SCH ×2 (00:21→11:14)
[2017-02-07] MEDS: SODIUM CHLOR 0.9% 1000 ML INJ 1,000 ML IV SCH ×2 (03:30→13:28)
[2017-02-07] MEDS: metroNIDAZOLE 500 MG INJ 100 ML IV SCH ×3 (05:33→23:08)
[2017-02-07] MEDS: ATORVASTATIN 10 MG TAB PO SCH (07:47)
[2017-02-07] MEDS: TOLTERODINE TARTRATE 4 MG CAP LA PO SCH (07:47)
[2017-02-07 08:00] VITALS: BP 106/69; PULSE 69; RESP 18; TEMP 96.9; O2SAT 97
--- NOTE | 2017-02-07 10:08 | HHI.PR ---
Subjective Remarks f/u; dog bite/ right thumb infection is fairly comfortable although has some pain to the right hand. had some nausea/ emesis yesterday which has resolved. no fever or any other complaints. Objective Vitals Vital Signs Date Time Temp Pulse Resp B/P (MAP) Pulse Ox O2 Delivery O2 Flow Rate FiO2 02/07/17 08:00 96.9 69 18 106/69 (81) 97 02/07/17 00:00 97.8 71 16 107/70 (82) 96 02/06/17 21:57 94 21 02/06/17 20:00 97.7 74 17 137/78 (97) 97 02/06/17 16:00 98.6 69 16 126/78 (94) 96 02/06/17 11:42 96.1 67 16 114/73 (87) 94 02/06/17 10:55 94 I/O 02/06/17 02/06/17 02/06/17 02/07/17 02/07/17 02/07/17 07:00 15:00 23:00 07:00 15:00 23:00 Intake Total 560 ml 1160 ml 2480 ml 780 ml Balance 560 ml 1160 ml 2480 ml 780 ml Intake Oral 360 ml 960 ml 480 ml 480 ml IV Total 200 ml 200 ml 2000 ml 300 ml # Voids 5 3 2 3 # Bowel Movements 0 Result Diagram: 02/05/17 1210 02/05/17 1210 Imaging Last Impressions Chest X-Ray 02/05/17 1200 Signed Impressions: Service Date/Time: January 12:11 - CONCLUSION: No acute disease. Clyde Orozco MD Objective Remarks GENERAL: This is a well-nourished, well-developed patient, in no apparent distress. CARDIOVASCULAR: Regular rate and regular rhythm without murmurs, gallops, or rubs. RESPIRATORY: Clear to auscultation. Breath sounds equal bilaterally. No wheezes , rales, or rhonchi. GASTROINTESTINAL: Abdomen soft, non-tender, nondistended. Normal, active bowel sounds MUSCULOSKELETAL: right hand covered with clean dressing. NEURO: Alert & Oriented x4 to person, place, time, situation. Moves all ext x4 Procedures exploration, arthrotomy Interphalangeal joint right thumb drainage and wash flexor tendon sheath right thumb Medications and IVs Current Medications Sodium Chloride 1,000 ml @ 125 mls/hr Q8H IV Last administered on 02/05/17 12 :19; Start 02/05/17 at 12:00; Stop 02/05/17 at 14:27; Status DC Vancomycin HCl 1000 mg/Sodium Chloride 250 ml @ 250 mls/hr ONCE ONCE IV Last administered on 02/05/17 15:28; Start 02/05/17 at 14:30; Stop 02/05/17 at 15:29 ; Status DC Morphine Sulfate (Morphine Inj) 2 mg ONCE ONCE IV PUSH Last administered on 15:29; Start 02/05/17 at 14:35; Stop 02/05/17 at 14:36; Status DC Ondansetron HCl (Zofran Inj) 4 mg ONCE ONCE IV PUSH ; Start 02/05/17 at 14:35; Stop 02/05/17 at 14:36; Status DC Ciprofloxacin/ Dextrose 200 ml @ 200 mls/hr Q12H IV Last administered on 00:21; Start 02/05/17 at 14:00 Metronidazole 100 ml @ 100 mls/hr Q8H IV Last administered on 02/07/17 05:33 ; Start 02/05/17 at 15:00 Ketorolac Tromethamine (Toradol Inj) 15 mg Q6HR PRN IV PUSH PAIN /FEVER Last administered on 02/06/17 00:37; Start 02/05/17 at 14:00; Stop 02/06/17 at 09:21 ; Status DC Ondansetron HCl (Zofran Inj) 4 mg Q8HR PRN IV PUSH NAUSEA Last administered on 02/06/17 15:00; Start 02/05/17 at 13:00 Sodium Chloride 1,000 ml @ 100 mls/hr Q10H IV Last administered on 02/06/17 10:27; Start 02/05/17 at 13:00 Lidocaine HCl (Xylocaine 2% Inj) 50 ml STK-MED ONCE .ROUTE Last administered on 02/05/17 20:52; Start 02/05/17 at 20:09; Stop 02/05/17 at 20:10; Status DC Bupivacaine HCl (Marcaine Pf 0.25% Inj) 30 ml STK-MED ONCE .ROUTE Last administered on 02/05/17 20:52; Start 02/05/17 at 20:11; Stop 02/05/17 at 20:12 ; Status DC Lactated Ringer's 1,000 ml @ 30 mls/hr Q24H PRN IV SEE LABEL COMMENTS; Start at 20:15; Stop 02/08/17 at 20:14 Sodium Chloride 500 ml @ 30 mls/hr [id number] PRN IV SEE LABEL COMMENTS; Start at 20:15; Stop 02/08/17 at 20:14 Metoprolol Tartrate (Lopressor) 25 mg ORDER MAKE UP CLERK PRN PO SEE LABEL COMMENTS; Start 02/05/17 at 20:15; Stop 02/08/17 at 20:14 Povidone Iodine (Betadine 5% Antisepsis Kit) 1 applic ORDER MAKE UP CLERK PRN EACH NARE SEE LABEL COMMENTS; Start 02/05/17 at 20:15; Stop 02/08/17 at 20:14 Chlorhexidine Gluconate (Chlorhexidine 2% Cloth) 3 pack ORDER MAKE UP CLERK PRN TOPICAL SEE LABEL COMMENTS; Start 02/05/17 at 20:15; Stop 02/08/17 at 20:14 Insulin Human Regular (NovoLIN R INJ) See Protocol Table ... ORDER MAKE UP CLERK PRN SQ SEE PROTOCOL TABLE; Start 02/05/17 at 20:15; Stop 02/08/17 at 20:14 Neomycin/Polymyxin (Neosporin G.u. Irr) 2 ml ONCE ONCE IRRIGATION Last administered on 02/05/17 21:37; Start 02/05/17 at 20:52; Stop 02/05/17 at 21:37 ; Status DC Morphine Sulfate (*morphine INJ PERIprocedure ONLY) 8 mg STK-MED ONCE .ROUTE Last administered on 02/05/17 22:20; Start 02/05/17 at 22:20; Stop 02/05/17 at 22:21; Status DC Miscellaneous Information ALL NURSING DEPARTME... UNSCH PRN .XX SEE LABEL COMMENTS; Start 02/05/17 at 22:45; Stop 02/06/17 at 22:44; Status DC Acetaminophen/ Hydrocodone Bitart ([place] 5-325 Mg) 1 tab ONCE ONCE PO Last administered on 02/06/17 05:21; Start 02/06/17 at 02:30; Stop 02/06/17 at 02:31 ; Status DC Acetaminophen/ Hydrocodone Bitart ([place] 5-325 Mg) 1 tab Q4H PRN PO PAIN 1-5; Start 02/06/17 at 09:30 Acetaminophen/ Hydrocodone Bitart ([place] 5-325 Mg) 2 tab Q4H PRN PO PAIN 6-10 Last administered on 02/06/17 15:13; Start 02/06/17 at 09:30 Zolpidem Tartrate (Ambien) 5 mg HS PRN PO INSOMNIA Last administered on 21:17; Start 02/06/17 at 09:30 Tolterodine Tartrate (Detrol La) 4 mg DAILY PO ; Start 02/07/17 at 09:00 Atorvastatin Calcium (Lipitor) 10 mg DAILY PO ; Start 02/07/17 at 09:00 A/P Assessment and Plan A/P - right thumb infective tenosynovitis/ dog bite s/p exploration, arthrotomy Interphalangeal joint right thumb/ drainage and wash flexor tendon sheath right thumb continue with IV antibiotics; Cipro and Flagyl- follow the cultures- continue pain control; is willing to try NSAIDs instead of narcotics tomorrow- ID and hand surgery following. -dyslipidemia; resumed home meds -DVT prophylaxis with subq Manjit Cervantes MD Feb 07, 2017 10:08
[2017-02-07 11:11] VITALS: BP 124/72; PULSE 71; RESP 16; TEMP 97; O2SAT 97
[2017-02-07] MEDS: ACETAMINOPHEN/HYDROcodone 325 MG/5 MG TAB PO PRN ×2 (11:13→16:16)
[2017-02-07] MEDS: ENOXAPARIN SODIUM 40 MG/0.4 ML SYRINGE SQ SCH (11:13)
[2017-02-07 11:19] VITALS: O2SAT 93
[2017-02-07 16:14] VITALS: BP 119/76; PULSE 71; RESP 16; TEMP 98.2; O2SAT 95
--- NOTE | 2017-02-07 16:32 | HHI.PR ---
Subjective Remarks complains of mild pain denies any tingling or numbness complaint with elevation no fever Objective Vital Signs Date Time Temp Pulse Resp B/P (MAP) Pulse Ox O2 Delivery O2 Flow Rate FiO2 02/07/17 16:14 98.2 71 16 119/76 (90) 95 02/07/17 11:19 93 21 02/07/17 11:11 97.0 71 16 124/72 (89) 97 02/07/17 08:00 96.9 69 18 106/69 (81) 97 02/07/17 00:00 97.8 71 16 107/70 (82) 96 02/06/17 21:57 94 21 02/06/17 20:00 97.7 74 17 137/78 (97) 97 I/O 02/06/17 02/06/17 02/06/17 02/07/17 02/07/17 02/07/17 07:00 15:00 23:00 07:00 15:00 23:00 Intake Total 560 ml 1160 ml 2480 ml 780 ml 600 ml Balance 560 ml 1160 ml 2480 ml 780 ml 600 ml Intake Oral 360 ml 960 ml 480 ml 480 ml 600 ml IV Total 200 ml 200 ml 2000 ml 300 ml # Voids 5 3 2 3 4 # Bowel Movements 0 0 examination of right thumb: packing in place mild surrounding swelling and erythema noted no compartment syndrome of the pulp clinically intact sensation distally able to flex IP Joint of the thumb gram stain and cultures: negative to date Result Diagram: 02/05/17 1210 02/05/17 1210 Assessment and Plan Assessment and Plan 61 year of female s/p drainage flexor tendon sheath and arthrotomy right thumb POD 2 Plan: packing removed, minimal drainage noted new dressing applied keep the part elevated range of motion exercises antibiotics based on ID recommendation hand surgery will follow Mando Mathew MD Feb 07, 2017 16:32
[2017-02-07 20:40] VITALS: BP 142/81; PULSE 60; RESP 16; TEMP 97.8; O2SAT 98
[2017-02-07] MEDS: ZOLPIDEM TARTRATE 5 MG TAB PO PRN (20:50)
[2017-02-08 00:15] VITALS: BP 137/82; PULSE 69; RESP 16; TEMP 97.2; O2SAT 95
[2017-02-08] MEDS: SODIUM CHLOR 0.9% 1000 ML INJ 1,000 ML IV SCH ×3 (01:00→21:00)
[2017-02-08] MEDS: CIPROFLOXACIN 400 MG PREMIX 200 ML IV SCH ×2 (01:57→11:10)
[2017-02-08] MEDS: metroNIDAZOLE 500 MG INJ 100 ML IV SCH ×3 (06:43→22:54)
[2017-02-08] MEDS: ATORVASTATIN 10 MG TAB PO SCH (07:14)
[2017-02-08] MEDS: TOLTERODINE TARTRATE 4 MG CAP LA PO SCH (07:14)
[2017-02-08 08:00] VITALS: BP 128/79; PULSE 64; RESP 18; TEMP 97.3; O2SAT 95
[2017-02-08] MEDS ORDERED: MAGNESIUM HYDROXIDE SUSP 30 ML CUP PO PRN (09:45)
[2017-02-08] MEDS ORDERED: LACTULOSE SYRUP 20 GM/30 ML CUP PO PRN (09:45)
[2017-02-08] MEDS ORDERED: BISACODYL 10 MG SUPP RECTAL PRN (09:45)
[2017-02-08] MEDS ORDERED: SENNOSIDES 8.6 MG TAB PO PRN (09:45)
[2017-02-08] MEDS ORDERED: NALOXONE HCL 0.4 MG/ML AMP IV PUSH PRN (09:45)
[2017-02-08] MEDS: ENOXAPARIN SODIUM 40 MG/0.4 ML SYRINGE SQ SCH (11:10)
[2017-02-08 11:18] VITALS: BP 130/82; PULSE 74; RESP 17; TEMP 97; O2SAT 96
--- NOTE | 2017-02-08 11:24 | HHI.PR ---
Subjective Remarks Follow-up for right thumb tenosynovitis. Patient is doing well. She is able to move her right thumb much better. Denies any chest pain, shortness of breath , fever or chills. Objective Vitals Vital Signs Date Time Temp Pulse Resp B/P (MAP) Pulse Ox O2 Delivery O2 Flow Rate FiO2 02/08/17 08:00 97.3 64 18 128/79 (95) 95 02/08/17 00:15 97.2 69 16 137/82 (100) 95 02/07/17 20:40 97.8 60 16 142/81 (101) 98 02/07/17 16:14 98.2 71 16 119/76 (90) 95 02/07/17 11:19 93 21 02/07/17 11:11 97.0 71 16 124/72 (89) 97 I/O 02/07/17 02/07/17 02/07/17 02/08/17 02/08/17 02/08/17 07:00 15:00 23:00 07:00 15:00 23:00 Intake Total 780 ml 898 ml 480 ml 780 ml Balance 780 ml 898 ml 480 ml 780 ml Intake Oral 480 ml 600 ml 480 ml 480 ml IV Total 300 ml 298 ml 300 ml # Voids 3 4 2 2 # Bowel Movements 0 0 0 Result Diagram: 02/05/17 1210 02/05/17 1210 Imaging Last Impressions Chest X-Ray 02/05/17 1200 Signed Impressions: Service Date/Time: January 12:11 - CONCLUSION: No acute disease. Clyde Orozco MD Objective Remarks GENERAL: Alert, oriented 3, NAD. SKIN: Warm and dry. HEAD: Normocephalic. EYES: No scleral icterus. No injection or drainage. NECK: Supple, trachea midline. No JVD or lymphadenopathy. CARDIOVASCULAR: Regular rate and rhythm without murmurs, gallops, or rubs. RESPIRATORY: Breath sounds equal bilaterally. No accessory muscle use. GASTROINTESTINAL: Abdomen soft, non-tender, nondistended. MUSCULOSKELETAL: No cyanosis, or edema. Right hand wrapped in dressing. She is able to move all her fingers. BACK: Nontender without obvious deformity. No CVA tenderness. Procedures exploration, arthrotomy Interphalangeal joint right thumb drainage and wash flexor tendon sheath right thumb A/P Problem List: (1) Tenosynovitis of finger ICD Code: M65.9 - Synovitis and tenosynovitis, unspecified Status: Acute (2) Dog bite ICD Code: W54.0XXA - Bitten by dog, initial encounter Assessment and Plan Ms. Wan is a pleasant 61 year old female who was admitted to the hospital on 02/05/2017 with right thumb pain and swelling. 2 days prior to her admission patient was bitten by her dog while she was trying to feed the dog. Her right thumb swelling, erythema progressively got worse. Her primary care provider prescribed clarithromycin but did not improve her symptoms significantly which prompted her to seek medical attention at [facility]. - Right thumb infective to no synovitis - Dog bite of the right thumb - Status post exploration, arthrotomy Interphalangeal joint right thumb/ drainage and wash flexor tendon sheath right thumb - Hand surgery following, infectious disease was also consulted. - Patient is currently on ciprofloxacin 400 mg IV every 12 hours, metronidazole 500 mg IV every 8 hours - Cultures negative so far. - [place] for pain. - We'll start patient on bowel regimen. - Hyperlipidemia - continue atorvastatin 10 mg daily. - Insomnia - zolpidem 5 mg by mouth daily at bedtime when necessary. Full code. Lovenox 40 mg every 24 hours. Rosana Porter DO Feb 08, 2017 11:24
--- NOTE | 2017-02-08 12:56 | HHI.PR ---
Subjective Remarks complains of no pain denies any tingling or numbness complaint with elevation no fever Objective Vital Signs Date Time Temp Pulse Resp B/P (MAP) Pulse Ox O2 Delivery O2 Flow Rate FiO2 02/08/17 11:18 97.0 74 17 130/82 (98) 96 02/08/17 08:00 97.3 64 18 128/79 (95) 95 02/08/17 00:15 97.2 69 16 137/82 (100) 95 02/07/17 20:40 97.8 60 16 142/81 (101) 98 02/07/17 16:14 98.2 71 16 119/76 (90) 95 I/O 02/07/17 02/07/17 02/07/17 02/08/17 02/08/17 02/08/17 07:00 15:00 23:00 07:00 15:00 23:00 Intake Total 780 ml 898 ml 480 ml 780 ml Balance 780 ml 898 ml 480 ml 780 ml Intake Oral 480 ml 600 ml 480 ml 480 ml IV Total 300 ml 298 ml 300 ml # Voids 3 4 2 2 # Bowel Movements 0 0 0 right hand and thumb: mild swelling over the IP joint no drainage thumb range of motion painless intact sensation over the pulp cultures: negative to date Result Diagram: 02/05/17 1210 02/05/17 1210 Assessment and Plan Assessment and Plan 61 year of female s/p drainage flexor tendon sheath and arthrotomy right thumb POD 3 Plan: new dressing applied keep the part elevated range of motion exercises antibiotics based on ID recommendation hand surgery will follow Mando Mathew MD Feb 08, 2017 12:56
[2017-02-08 16:10] VITALS: BP 137/88; PULSE 66; RESP 17; TEMP 97.5; O2SAT 94
[2017-02-08] MEDS: ZOLPIDEM TARTRATE 5 MG TAB PO PRN (20:16)
[2017-02-08 20:57] VITALS: BP 138/83; PULSE 67; RESP 16; TEMP 98.3; O2SAT 97
[2017-02-09] MEDS: CIPROFLOXACIN 400 MG PREMIX 200 ML IV SCH (01:57)
[2017-02-09] MEDS: SODIUM CHLOR 0.9% 1000 ML INJ 1,000 ML IV SCH (07:00)
[2017-02-09] MEDS: metroNIDAZOLE 500 MG TAB PO SCH ×2 (07:57→14:01)
[2017-02-09 08:00] VITALS: BP 137/88; PULSE 77; RESP 18; TEMP 96.5; O2SAT 93
--- NOTE | 2017-02-09 08:59 | HHI.PR ---
Objective Vitals Vital Signs Date Time Temp Pulse Resp B/P (MAP) Pulse Ox O2 Delivery O2 Flow Rate FiO2 02/08/17 20:57 98.3 67 16 138/83 (101) 97 02/08/17 16:10 97.5 66 17 137/88 (104) 94 02/08/17 11:18 97.0 74 17 130/82 (98) 96 I/O 02/08/17 02/08/17 02/08/17 02/09/17 02/09/17 02/09/17 07:00 15:00 23:00 07:00 15:00 23:00 Intake Total 780 ml 920 ml 580 ml 540 ml Balance 780 ml 920 ml 580 ml 540 ml Intake Oral 480 ml 720 ml 480 ml 240 ml IV Total 300 ml 200 ml 100 ml 300 ml # Voids 2 5 2 1 # Bowel Movements 0 0 1 0 Result Diagram: 02/05/17 1210 02/05/17 1210 Objective Remarks GENERAL: Alert, oriented 3, NAD. SKIN: Warm and dry. HEAD: Normocephalic. EYES: No scleral icterus. No injection or drainage. NECK: Supple, trachea midline. No JVD or lymphadenopathy. CARDIOVASCULAR: Regular rate and rhythm without murmurs, gallops, or rubs. RESPIRATORY: Breath sounds equal bilaterally. No accessory muscle use. GASTROINTESTINAL: Abdomen soft, non-tender, nondistended. MUSCULOSKELETAL: No cyanosis, or edema. Right hand wrapped in dressing. She is able to move all her fingers. BACK: Nontender without obvious deformity. No CVA tenderness. Procedures exploration, arthrotomy Interphalangeal joint right thumb drainage and wash flexor tendon sheath right thumb A/P Problem List: (1) Tenosynovitis of finger ICD Code: M65.9 - Synovitis and tenosynovitis, unspecified Status: Acute (2) Dog bite ICD Code: W54.0XXA - Bitten by dog, initial encounter Assessment and Plan Ms. Wan is a pleasant 61 year old female who was admitted to the hospital on 02/05/2017 with right thumb pain and swelling. 2 days prior to her admission patient was bitten by her dog while she was trying to feed the dog. Her right thumb swelling, erythema progressively got worse. Her primary care provider prescribed clarithromycin but did not improve her symptoms significantly which prompted her to seek medical attention at [facility]. - Right thumb infective to no synovitis - Dog bite of the right thumb - Status post exploration, arthrotomy Interphalangeal joint right thumb/ drainage and wash flexor tendon sheath right thumb - Hand surgery following, infectious disease was also consulted. - Patient is currently on ciprofloxacin 400 mg IV every 12 hours, metronidazole 500 mg IV every 8 hours - Cultures negative so far. - [place] for pain. - We'll start patient on bowel regimen. - Hyperlipidemia - continue atorvastatin 10 mg daily. - Insomnia - zolpidem 5 mg by mouth daily at bedtime when necessary. Full code. Lovenox 40 mg every 24 hours. Rosana Porter DO Feb 09, 2017 8:59 am
[2017-02-09] MEDS ORDERED: CIPROFLOXACIN 750 MG TAB PO SCH (09:00)
[2017-02-09] MEDS: TOLTERODINE TARTRATE 4 MG CAP LA PO SCH (09:00)
[2017-02-09] MEDS: ATORVASTATIN 10 MG TAB PO SCH (09:00)
[2017-02-09 12:00] VITALS: BP 124/94; PULSE 77; RESP 18; TEMP 98.7; O2SAT 96
[2017-02-09] MEDS: ENOXAPARIN SODIUM 40 MG/0.4 ML SYRINGE SQ SCH (12:15)
[2017-02-09] MEDS ORDERED: CIPR750T2 PO (12:43)
[2017-02-09] MEDS ORDERED: METR-1 PO (12:43)
--- NOTE | 2017-02-09 12:46 | HHI.DS ---
Discharge Summary Admission Date Feb 05, 2017 at 1:04 pm Discharge Date: Feb 09, 2017 Admitting Diagnosis Tenosynovitis right thumb (1) Tenosynovitis of finger ICD Code: M65.9 - Synovitis and tenosynovitis, unspecified Diagnosis: Principal Status: Acute (2) Dog bite ICD Code: W54.0XXA - Bitten by dog, initial encounter Diagnosis: Principal Procedures exploration, arthrotomy Interphalangeal joint right thumb drainage and wash flexor tendon sheath right thumb Brief History - From Admission patient is a 61 y/o female who presented to ER with pain and swelling of the right thumb. she says that was bitten by her dog two days ago when she was feeding her dog. she noticed some swelling and redness over the right thumb which gradually got worse. she was prescribed Clarithromycin by her PCP which she took with no significant improvement. she denies any fever,chills or night sweats. she had some nausea but with no emesis. CBC/BMP: 02/05/17 1210 02/05/17 1210 Imaging Last Impressions Chest X-Ray 02/05/17 1200 Signed Impressions: Service Date/Time: , February 05, 2017 12:11 - CONCLUSION: No acute disease. Clyde Orozco MD PE at Discharge GENERAL: Alert, oriented 3, NAD. SKIN: Warm and dry. HEAD: Normocephalic. EYES: No scleral icterus. No injection or drainage. NECK: Supple, trachea midline. No JVD or lymphadenopathy. CARDIOVASCULAR: Regular rate and rhythm without murmurs, gallops, or rubs. RESPIRATORY: Breath sounds equal bilaterally. No accessory muscle use. GASTROINTESTINAL: Abdomen soft, non-tender, nondistended. MUSCULOSKELETAL: No cyanosis, or edema. Right hand wrapped in dressing. She is able to move all her fingers. BACK: Nontender without obvious deformity. No CVA tenderness. Pt update on day of discharge Patient is doing well. No fever, chills. Hand surgery evaluated patient - pt can go home with follow up with hand surgery in two days. ID recommended [facility] for 4 weeks with outpatient ID follow up with Dr. Hill in 10 days. Hospital Course Ms. Wan is a pleasant 61 year old female who was admitted to the hospital on 02/05/2017 with right thumb pain and swelling. 2 days prior to her admission patient was bitten by her dog while she was trying to feed the dog. Her right thumb swelling, erythema progressively got worse. Her primary care provider prescribed clarithromycin but did not improve her symptoms significantly which prompted her to seek medical attention at [facility]. - Right thumb infective to no synovitis - Dog bite of the right thumb - Status post exploration, arthrotomy Interphalangeal joint right thumb/ drainage and wash flexor tendon sheath right thumb - Hand surgery following, infectious disease was also consulted. - Patient is currently on ciprofloxacin and Flagyl. - Cultures negative so far. - [place] for pain. - Hyperlipidemia - continue atorvastatin 10 mg daily. - Insomnia - zolpidem 5 mg by mouth daily at bedtime when necessary. Discussed with Hand surgery and ID at length. Hand surgery cleared patient for discharge. We will discharge patient and continue 4 weeks of Cipro and Flagyl as well as outpatient ID follow up in [address] Hill. Patient will be followed by Hand surgery in 2-3 days. Patient has not used narcotic pain medications in the last two days. No narcotics given on discharge. Pt Condition on Discharge: Good Discharge Disposition: Discharge Home Discharge Time: > 30 minutes Discharge Instructions Follow up Referrals: Hand Surgery - 2-3 Days with Mando Mathew MD Infectious Disease - 10 Days with Radha Hill MD Phone: New Medications: Ciprofloxacin (Ciprofloxacin) 750 Mg Tab 750 MG PO Q12HR for Infection, #56 TAB Metronidazole (Flagyl) 500 Mg Tab 500 MG PO Q8HR for Infection, #84 TAB Continued Medications: Ifswhyhuaky-Xnplu-Sowcwygou Blue (Uribel) 1 Cap Mirabegron (Myrbetriq) 25 Mg Tab 25 MG PO DAILY for Urinary Symptom Managemen, #30 TAB 0 Refills Rosuvastatin (Crestor) 5 Mg Tab 5 MG PO DAILY for Cholesterol Management, #30 TAB 0 Refills Rosana Porter DO Feb 09, 2017 12:46
--- NOTE | 2017-02-09 12:47 | HHI.IDPN ---
Subjective Subjective Remarks is a 61 y/o CF with PMHx significant for Interstitial cystitis for which she has been on multiple antibiotics in past for recurrent UTIs. She also has a bladder stimulator in place but it is not being used actively and is turned off. With this background patient reports she was trying to feed her sick dog some medications when her pet dog accidentally bit her thumb. Her dog is 15.5 yrs old and does not get dental cleaning per her self report. She noticed some swelling and redness and her PCP prescribed her Clarithro// Azithromycin she is not sure. She noticed gradual worsening and presented to the ED. She denies any fever,chills or night sweats. She had some nausea but with no emesis and attributes it to the Tuna sandwich she ate. ID consulted for evaluation and Mment of Infected tenosynovitis. Overnight events reviewed No fever No rash No diarrhea Antibiotics Cipro IV flagyl IV Lines Line sites with no e.o infection Past Medical History Interstitial cystitis. Allergies: Coded Allergies: penicillin G (Unverified Allergy, Severe, 02/05/17) Objective . Vital Signs Date Time Temp Pulse Resp B/P (MAP) Pulse Ox O2 Delivery O2 Flow Rate FiO2 02/09/17 08:00 96.5 77 18 137/88 (104) 93 02/08/17 20:57 98.3 67 16 138/83 (101) 97 02/08/17 16:10 97.5 66 17 137/88 (104) 94 Imaging Last Impressions Chest X-Ray 02/05/17 1200 Signed Impressions: Service Date/Time: January 12:11 - CONCLUSION: No acute disease. Clyde Orozco MD Physical Exam GENERAL: This is a well-nourished, well-developed patient, in no apparent distress. SKIN: No rashes, ecchymoses or lesions. Cool and dry. HEAD: Atraumatic. Normocephalic. No temporal or scalp tenderness. EYES: Pupils equal round and reactive. Extraocular motions intact. No scleral icterus. No injection or drainage. ENT: Nose without bleeding, purulent drainage or septal hematoma. Throat without erythema, tonsillar hypertrophy or exudate. Uvula midline. Airway patent. NECK: Trachea midline. No JVD or lymphadenopathy. Supple, nontender, no meningeal signs. CARDIOVASCULAR: Regular rate and rhythm without murmurs, gallops, or rubs. RESPIRATORY: Clear to auscultation. Breath sounds equal bilaterally. No wheezes , rales, or rhonchi. GASTROINTESTINAL: Abdomen soft, non-tender, nondistended. No hepato-splenomegaly , or palpable masses. No guarding. MUSCULOSKELETAL: Right hand in post op dressing. showed me pictures. NEUROLOGICAL: Awake and alert. Cranial nerves II through XII intact. Motor and sensory grossly within normal limits. Five out of 5 muscle strength in all muscle groups. Normal speech. Psych cooperative IV line sites with no e.o infection Assessment & Plan Remarks Infective tenosynovitis Dog bite Interstitial cystitis Prior antibiotic exposure. Bladder stimulator in place. Penicillin allergy recs Continue Cipro and flagyl plan on 4 weeks for tenosynovitis. Follow up with Dr.Reba Hill in 10 days for clinical as well as lab follow up. Follow clinically CMP and CRP ordered. follow LFTs as pt is being discharged on oral flagyl which can affect LFTs. Angel Santacruz hand surgery treat as tenosynovitis, no bone involved. Ok to discharge home today. d/w : follow labs ordered today. If normal ok to discharge. If abnormal to please call me. Angel patient Cipro to be taken apart from Antacids, Milk and Milk products. Also counseled can cause tendinitis and Cdiff. Dr[place]olph patient side effects of flagyl: including nausea and peripheral neuropathy. She understands the implications of these side effects and will self monitor and also follow up with Dr.Reba Hill. Will sign off please call back if any change in clinical condition or questions. Cheyenne Limon MD Feb 09, 2017 12:46
[2017-02-09 14:15] LABS: ANION GAP 11 MEQ/L (5-15); AST (GOT) 66 U/L (15-37); BICARBONATE 24.4 MEQ/L (21.0-32.0); BLOOD UREA NITROGEN 17 MG/DL (7-18); CHLORIDE 102 MEQ/L (98-107); GLOMERULAR FILTRATION RATE 82 ML/MIN (>89); POTASSIUM 3.5 MEQ/L (3.5-5.1); SODIUM (NA) 137 MEQ/L (136-145)
[2017-02-09 14:17] LABS: ALT (GPT) 66 U/L (10-53)
[2017-02-09 14:18] LABS: ALKALINE PHOSPHATASE 90 U/L (45-117); TOTAL BILIRUBIN ADULT 0.2 MG/DL (0.2-1.0)
== END 2017-02-09 15:19 | disposition home or self-care (01) | DRG 506 ==
LOC: HOR 11:34 → NEDA 13:04 → N06A 13:51
PROVIDERS: ADMIT Hospitalist; ATTEND Hospitalist
PROC: 0L970ZZ Drainage of Right Hand Tendon, Open Approach (ICD-10-PCS; 2017-02-05)
PROC: 0RJ Upper Joints, Inspection (ICD-10-PCS; principal; 2017-02-05 20:23)
DX: M65.141 Other infective (teno)synovitis, right hand (principal); N30.10 Interstitial cystitis (chronic) without hematuria; S61.051A Open bite of right thumb without damage to nail, initial encounter; G47.00 Insomnia, unspecified; E78.5 Hyperlipidemia, unspecified; W54.0XXA Bitten by dog, initial encounter; Z88.0 Allergy status to penicillin
CPT/HCPCS: 71010; 80048; 80053; 85025; 85610; 85730; 86140; 87015; 87070; 87102; 87116; 87205; 87206; 93005; J0744; J1100; J1650; J1885; J2270; J2405; J3010; J3370; J7030; J7050